=== PATIENT | female | born 1975 ===

== ENCOUNTER 2017-12-17 15:15 | Emergency (ER) | payer OTHER ==
[2017-12-17 15:26] VITALS: RESP 18; TEMP 99.1
--- NOTE | 2017-12-17 15:36 | C.PDOC ---
History Of Present Illness 42 year old female presents to the ED complaining of burning with urination for 3 days. Patient denies any fever, chills, frequency, incontinence, hematuria, vaginal bleeding, nausea, vomiting, diarrhea or pelvic pain. Time Seen by Provider: 12/17/17 15:21 Chief Complaint (Nursing): Female Genitourinary History Per: Patient History/Exam Limitations: no limitations Onset/Duration Of Symptoms: Days Quality Of Discomfort: Burning Associated Symptoms: denies: Fever, Nausea, Vomiting, Diarrhea Past Medical History Reviewed: Historical Data, Nursing Documentation, Vital Signs Vital Signs: Last Vital Signs Temp 99.1 F 12/17/17 15:20 Pulse 81 12/17/17 16:22 Resp 18 12/17/17 16:22 BP 125/73 12/17/17 16:22 Pulse Ox 97 12/17/17 16:22 - Medical History PMH: No Chronic Diseases Other Surgeries: Hx of surgeries Family History: States: No Known Family Hx - Social History Hx Alcohol Use: No Hx Substance Use: No - Immunization History Hx Tetanus Toxoid Vaccination: Yes Hx Influenza Vaccination: No Hx Pneumococcal Vaccination: No Review Of Systems Constitutional: Negative for: Fever, Chills Gastrointestinal: Negative for: Nausea, Vomiting, Diarrhea Genitourinary: Positive for: Dysuria. Negative for: Frequency, Incontinence, Hematuria, Vaginal Bleeding, Pelvic Pain Physical Exam - Physical Exam Appears: Non-toxic, No Acute Distress Skin: Warm, Dry, No Rash Head: Atraumatic, Normacephalic Eye(s): bilateral: Normal Inspection Nose: Normal Oral Mucosa: Moist Neck: Normal ROM, Supple Chest: Symmetrical Cardiovascular: Rhythm Regular, No Murmur Respiratory: Normal Breath Sounds, No Rales, No Rhonchi, No Wheezing Extremity: Normal ROM Extremity: Bilateral: Atraumatic, Normal Color And Temperature, Normal ROM Neurological/Psych: Oriented x3, Normal Speech Gait: Steady ED Course And Treatment O2 Sat by Pulse Oximetry: 100 (RA) Pulse Ox Interpretation: Normal Medical Decision Making Medical Decision Making: Patient assessed and examined. Urine collected and sent to lab for analysis. Urine shows UTI. Patient further treated with Cipro PO. Patient given follow up instructions. Instructed to return to ER if symptoms worsen or new symptoms arise Disposition Counseled Patient/Family Regarding: Diagnosis, Need For Followup, Rx Given - Disposition Referrals: [facility] [Outside] [facility]. [facility] [Outside] Disposition: HOME/ ROUTINE Disposition Time: 16:20 Condition: GOOD Additional Instructions: Take antibiotic twice daily and be sure to finish taking all of antibiotic. Drink plenty of fluids. Follow up with your primary medical doctor or clinic in 2-5 days for further evaluation. [place] antibiticos dos veces al da y asegrese de terminar de khurram todos los antibiticos. Beber mucho lquido. Allen un seguimiento con webber mdico primario o clnica en 2-5 hoffmann para man evaluacin adicional. Prescriptions: Ciprofloxacin [Cipro] 1 tab PO BID #10 tab Instructions: Urinary Tract Infection, Adult (DC) Print Language: ALGERIAN - POA Present On Arrival: None - Clinical Impression Clinical Impression: UTI (urinary tract infection) - PA / EMBRYOLOGY PROFESSOR / Resident Statement MD/DO has reviewed & agrees with the documentation as recorded. - Scribe Statement The provider has reviewed the documentation as recorded by the Cosmeibgerard Franks All medical record entries made by the Scribe were at my direction and personally dictated by me. I have reviewed the chart and agree that the record accurately reflects my personal performance of the history, physical exam, medical decision making, and the department course for this patient. I have also personally directed, reviewed, and agree with the discharge instructions and disposition.
[2017-12-17 16:04] LABS: HCG,QUALITATIVE URINE NEGATIVE (NEGATIVE)
[2017-12-17 16:05] LABS: SQUAMOUS EPITHIAL 3 /hpf (0-5); URINE BACTERIA MANY (<OCC); URINE BILIRUBIN NEGATIVE (NEGATIVE); URINE BLOOD 3+ (NEGATIVE); URINE CLARITY Hazy (Clear); URINE COLOR Amber (YELLOW); URINE GLUCOSE (UA) NORMAL (Normal); URINE LEUKOCYTE ESTERASE 3+ Leu/uL (Negative); URINE PROTEIN 2+ mg/dL (NEGATIVE); WBC CLUMPS MOD /hpf
[2017-12-17 16:23] VITALS: BP 125/73; PULSE 81
[2017-12-17 18:05] VITALS: O2SAT 100
== END 2017-12-17 16:23 | disposition home or self-care (01) ==
LOC: C.ER 15:15
DX: N39.0 Urinary tract infection, site not specified (principal)